=== PATIENT | male | born 1970 | race Two or more races ===

== ENCOUNTER 2023-05-02 10:33 | Emergency (ER) | payer OTHER ==
[~2023-05-02] VITALS: Ht 177.8 cm; Wt 86.4 kg
[2023-05-02 10:41] VITALS: TEMP 97.9
[2023-05-02] MEDS ORDERED: FLUORESCEIN SODIUM 1 MG STRIP OU ONE (12:45)
[2023-05-02] MEDS ORDERED: PROPARACAINE HCL 0.5% 15 ML OPHTHALMIC SOLUTION OU ONE (13:00)
[2023-05-02] MEDS ORDERED: ACYCLOVIR 200 MG CAPSULE PO ONE (13:45)
[2023-05-02] MEDS ORDERED: PredniSONE 20 MG TABLET PO ONE (13:45)
[2023-05-02] MEDS ORDERED: PRED-554 PO (14:02)
[2023-05-02] MEDS ORDERED: ACYC-138 PO (14:02)
[2023-05-02 14:16] VITALS: BP 150/98; PULSE 89; RESP 18
== END 2023-05-02 14:19 | disposition home or self-care (01) ==
LOC: EMS 10:34
DX: B00.9 Herpesviral infection, unspecified (principal)
CPT/HCPCS: 99284; J7512